=== PATIENT | female | born 1995 | race Caucasian/White ===

== ENCOUNTER 2025-10-31 06:02 | Inpatient (IN) ==
[2025-10-31] MEDS ORDERED: CALCIUM CARBONATE 500 MG CHEWABLE TAB PO PRN (06:06)
[2025-10-31] MEDS ORDERED: OXYTOCIN 30 UNITS/NSS 30 UNITS/500 ML BAG IV PRN ×2 (06:06→11:01)
[2025-10-31] MEDS ORDERED: LIDOCAINE 1% LOCAL 20 ML VIAL INFIL PRN (06:06)
[2025-10-31] MEDS: LACTATED RINGER'S 1,000 ML IV PRN (06:09)
[2025-10-31 06:52] LABS: Hematocrit (blood only) 33.2 % (37.0-47.0); Hemoglobin 11.7 g/dL (12.0-16.0); Mean Corpuscular Hemoglobin 29.8 pg (25.0-34.0); Mean Corpuscular Volume 84.7 fL (80.0-100.0); Platelet Count 165 K/uL (130-400); RDW Standard Deviation 38.4 fL (36.4-46.3); Red Blood Count 3.92 M/uL (4.20-5.40); White Blood Count 16.48 K/ul (4.8-10.8)
[2025-10-31] MEDS: fentANYL 2 MCG/ML BUPIVacaine 0.125%-NSS 100ML BAG ONE (07:42)
[2025-10-31] MEDS ORDERED: NALBUPHINE HCL INJ 10 MG/ML AMP IV PRN (07:49)
[2025-10-31] MEDS ORDERED: diphenhydrAMINE 50 MG/ML VIAL IV PRN (07:49)
[2025-10-31] MEDS ORDERED: fentANYL 2 MCG/ML BUPIVacaine 0.125%-NSS 100ML BAG EPI PRN (07:49)
[2025-10-31] MEDS ORDERED: NALOXONE HCL 1 MG in SODIUM CHLORIDE 0.9% 1,000 ML IV PRN (07:49)
[2025-10-31] MEDS ORDERED: PROMETHAZINE 6.25 MG/50.25 ML BAG IV PRN (07:49)
[2025-10-31] MEDS ORDERED: SODIUM CHLORIDE 0.9% PF INJ 10 ML VIAL EPI PRN (07:49)
[2025-10-31] MEDS ORDERED: ROPIVACAINE 0.5% PF 5 MG/ML 20 ML VIAL EPI PRN (07:49)
[2025-10-31] MEDS ORDERED: NALOXONE HCL 0.4 MG/1 ML VIAL/CARP IV PRN (07:49)
[2025-10-31] MEDS ORDERED: BUPIVACAINE 0.25% PF 30 ML VIAL EPI PRN (07:49)
[2025-10-31] MEDS ORDERED: LIDOCAINE 2% MPF LOCAL 5 ML VIAL EPI PRN (07:49)
[2025-10-31] MEDS ORDERED: ONDANSETRON INJ 2 MG/ML 2 ML VIAL IV PRN (07:49)
--- NOTE | 2025-10-31 07:49 | Anesthesiology Consultation ---
Date of Service October 31, 2025 Assessment & Plan Chart Review Chart Review: Patient NOT seen in Pre Admission Testing and Acceptable Risk for Labor Epidural Consults Requested none ASA ASA2 Proposed Anesthesia Anesthesia Type: CSE Risk / Benefits Reviewed With: PT / POA / Parent / Guardian, Accepts Plan and Informed Consent Obtained History Height/Weight Height: 5 ft 7 in Weight: 71.214 kg Allergies Allergy/AdvReac Type Severity Reaction Status Date / Time No Known Allergies Allergy Unverified 10/31/25 06:09 Medications Home Medications Medication Instructions Recorded Confirmed Last Taken [id number] 1 mg 1 tab PO DAILY 10/31/25 10/31/25 10/30/25 tablet Active Medications Generic Name Dose Route Start Last Admin Trade Name Freq PRN Reason Stop Dose Admin Lactated Ringer's 1,000 mls @ 125 mls/hr 10/31/25 06:06 10/31/25 07:15 Lr IV 11/02/25 06:05 999 mls/hr .Q8H PRN Administration L&D Protocol Protocol Past Medical History Medical History (Updated 10/31/25 @ 06:09 by Ruchi Quinones, RN) Anemia Iron transion x1 during Exercise / Class Metabolic Activity II 4-5 Yardwork/Stairs/Walk up hill Past Anesthesia History No Hx of Anesthesia Complications and No Family Hx of Anesthesia Complications History of PONV No Hx of PONV and No Hx of Motion Sickness Social History Smoking Status: Never smoker Hx Alcohol Use: No Hx Substance Use: No Physical Exam Vital Signs Last Vital Signs Temp 36.6 C 10/31/25 07:02 Pulse 82 10/31/25 07:47 Resp 22 10/31/25 07:02 BP 90/53 L 10/31/25 07:47 Pulse Ox 96 10/31/25 07:42 O2 Del Method Room Air 10/31/25 06:15 ENMT Mouth: no dentition abnormality Thyromental Distance: > or= 3.5 Finger Breadths Mallampati Class: II Neck normal visual inspection Respiratory normal respiratory effort Auscultation: lungs clear to auscultation bilaterally Cardiovascular Rate/Rhythm: regular rate and regular rhythm Psychiatric Orientation: alert Testing Laboratory Results 10/31/25 06:23
[2025-10-31] MEDS: LIDOCAINE 2%/EPINEPHRINE 1:200,000 20 ML PF ONE (07:54)
[2025-10-31] MEDS: BUPIVACAINE 0.25% PF 30 ML VIAL ONE (07:54)
[2025-10-31] MEDS: SODIUM CHLORIDE 0.9% PF INJ 10 ML VIAL ONE (08:23)
[2025-10-31] MEDS: OXYTOCIN 30 UNITS/NSS 30 UNITS/500 ML BAG IV PRN (09:30)
[2025-10-31] MEDS: METHYLERGONOVINE MALEATE 0.2 MG/ML AMP IM ONE (10:38)
[2025-10-31] MEDS ORDERED: HYDROCORTISONE ACETATE 25 MG SUPP PR PRN (11:01)
[2025-10-31] MEDS ORDERED: ACETAMINOPHEN W/CODEINE #3 1 TAB PO PRN (11:01)
--- NOTE | 2025-10-31 11:05 | Delivery Summary ---
Vaginal Delivery Summary Date of Service October 31, 2025 Supervising Physician Co-Signing Physician Notes Patient is followed in the office for care and delivery. Patient's been well dated with first trimester ultrasound. Patient arrives in active l abor at 39 weeks 4 days gestation. Her first check on the floor revealed the cervix to be 9+ centimeters with membranes intact. Patient was given fluid load and then received epidural. Patient received excellent pain control with the epidural. Contractions spaced out. She was augmented with IV Pitocin. Went to full dilatation and delivered a live infant via direct occiput anterior position over an intact perineum. was suctioned through the mouth and the nose. Shoulders were delivered without difficulty. Cord was allowed to pulse for 1 full minute. Cord was then clamped cut by the father. Cord blood was taken. With IV Pitocin and IM Methergine the placenta was removed intact. Inspection of the perineum revealed a first-degree laceration. The vaginal mucosa was approximated out and to beyond the hymenal ring with a continuous suture of 2-0 Vicryl. A deep suture of 2-0 Vicryl was used to approximate the bulbocavernosus muscle a separate deep sutures used approximate the perineal body. A separate deep suture was used to bolster the rectal sphincter capsule. And the skin edges were approximated with a running subcuticular suture. Sponges were removed from the vagina. Rectal exam revealed no stitches through the rectum. And quantitative blood loss was 152 mL. Patient tolerated the delivery well.
[2025-10-31] MEDS: LIDOCAINE 2%/EPINEPHRINE 1:200,000 20 ML PF EPI STA (12:50)
[2025-10-31] MEDS: DIPHTHER/TETAN/PERTUS Vaccine (Tdap, Adol/Adult) 0.5mL IM ONE (12:50)
[2025-10-31] MEDS: SODIUM CHLORIDE 0.9% PF INJ 10 ML VIAL EPI STA (12:50)
[2025-10-31] MEDS: BUPIVACAINE 0.25% PF 30 ML VIAL EPI STA (12:50)
[2025-10-31] MEDS: IBUPROFEN 600 MG TAB PO PRN (13:15)
--- NOTE | 2025-10-31 14:39 | Anesthesia Procedure Note ---
Date of Service October 31, 2025 Anesthesia Post Epidural Note Vital Signs Vital Signs: Temp Pulse Resp BP Pulse Ox O2 Del Method 36.6 C 93 H 18 109/68 90 Room Air 10/31/25 12:55 10/31/25 12:55 10/31/25 12:55 10/31/25 12:55 10/31/25 11:37 10/31/25 06:15 Pain Intensity Lower Back: Pain Intensity: 3 Notes Mental Status: alert / awake / arousable Nausea / Vomiting: adequately controlled Pain: adequately controlled Airway Patency, RR, SpO2: stable & adequate BP & HR: stable & adequate Hydration State: stable & adequate Neuraxial Anesthesia: was administered and sensory block is resolving Anesthetic Complications: no major complications apparent and Pt Satisfied with anesthetic care Epidural: Removed without complications and With tip intact
[2025-10-31] MEDS: ACETAMINOPHEN 325 MG TAB PO PRN (15:56)
[2025-10-31] MEDS: BENZOCAINE 20% SPRY 85 APPLN/85 GM CAN EXT PRN (16:16)
[2025-10-31] MEDS ORDERED: LIDOCAINE 2% JELLY 5 ML TUBE EXT ONE (16:39)
[2025-10-31] MEDS: DOCUSATE SODIUM 100 MG CAP PO SCH (20:03)
[2025-11-01 06:22] LABS: Hematocrit (blood only) 29.1 % (37.0-47.0); Hemoglobin 10.0 g/dL (12.0-16.0); Mean Corpuscular Hemoglobin 30.1 pg (25.0-34.0); Mean Corpuscular Volume 87.7 fL (80.0-100.0); Platelet Count 141 K/uL (130-400); RDW Standard Deviation 40.8 fL (36.4-46.3); Red Blood Count 3.32 M/uL (4.20-5.40); White Blood Count 10.73 K/ul (4.8-10.8)
[2025-11-01] MEDS: PRENATAL VITAMIN 1 TAB PO SCH (09:45)
--- NOTE | 2025-11-01 10:16 | Obstetrical Progress Note ---
Date of Service November 01, 2025 Assessment & Plan (1) Normal course: Post day #1 Vaginal delivery Pt doing well No complaints Stable vitals Stable labs. H/H: 29.0 Tolerating PO food and med Pt wishes to be discharged home tomorrow Results & Data Vital Signs (Past 12 Hours) Vital Signs Temp Pulse Resp BP Pulse Ox O2 Del Method 11/01/25 03:01 36.4 C L 74 16 90/53 L 100 Room Air 10/31/25 22:57 36.7 C 84 16 92/50 L 98 Room Air
[2025-11-02 06:31] LABS: Hematocrit (blood only) 30.5 % (37.0-47.0); Hemoglobin 10.2 g/dL (12.0-16.0)
[2025-11-02] MEDS: ACETAMINOPHEN 500 MG TAB PO PRN (10:22)
[2025-11-02 10:49] VITALS: BP 109/69; RESP 16; TEMP 97.5; O2SAT 100
[2025-11-02 10:56] VITALS: PULSE 74
--- NOTE | 2025-11-02 11:02 | Obstetrical Progress Note ---
Date of Service November 02, 2025 Subjective Ambulation: ambulating normally Voiding: voiding difficulty Passing Gas:: Yes Diet Tolerance:: regular diet Lochia:: Small Feeding Type:: breast feeding Current Pain Level(1-10): 0 Rodríguez was recently removed due to difficulty voiding. IF unable to void will send home with leg bag/Rodríguez and f/u in office. Physical Exam Constitutional WD/WN, vitals as above Gastrointestinal (Abdomen) Inspection/Auscultation: abdomen normal to inspection abdomen soft and non tender. Fundus firm below U. Musculoskeletal Extremities: extremities normal to inspection Skin no rashes, warm and dry Neurologic patellar DTR's 2+ bilat, sensation intact Results & Data Vital Signs (Past 12 Hours) Vital Signs Temp Pulse Pulse Resp BP Pulse Ox O2 Del Method 11/02/25 10:55 36.4 C L 83 74 16 109/69 100 11/02/25 10:10 36.4 C L 83 16 109/69 100 Room Air 11/02/25 02:07 36.3 C L 71 18 100/59 L 99 Room Air Laboratory Results 10/31/25 11/01/25 11/02/25 06:23 06:01 05:59 WBC 16.48 H 10.73 RBC 3.92 L 3.32 L Hgb 11.7 L 10.0 L 10.2 L Hct 33.2 L 29.1 L 30.5 L MCV 84.7 87.7 MCH 29.8 30.1 MCHC 35.2 34.4 RDW Std Deviation 38.4 40.8 RDW Coeff of Opal 12.7 12.7 Plt Count 165 141 MPV 11.5 11.6 Treponema pallidum Ab Negative
== END 2025-11-02 17:00 | disposition home or self-care (01) | DRG 807 ==
LOC: OPB 06:02 → 4S1 06:04 → 4E2 14:00